=== PATIENT | male | born 1955 | race Caucasian/White ===

== ENCOUNTER 2021-05-30 11:12 | Day surgery (SDC) | payer OTHER, SELFPAY ==
[~2021-05-30] VITALS: Ht 175.3 cm; Wt 108.9 kg
[2021-05-30] MEDS ORDERED: LIDOCAINE 2% 100 MG/5 ML UJET TP ONE (12:45)
[2021-05-30] MEDS ORDERED: fentaNYL citrate 0.05 MG/ML VIAL ONE (12:45)
== END 2021-05-30 13:50 | disposition home or self-care (01) ==
LOC: MDS 11:12 → MMU 11:13 → MDS 13:50
PROVIDERS: ATTEND Internal Medicine Gastroenterology
DX: D50.9 Iron deficiency anemia, unspecified (principal); K63.5 Polyp of colon; K64.9 Unspecified hemorrhoids; I10 Essential (primary) hypertension; E11.9 Type 2 diabetes mellitus without complications; K44.9 Diaphragmatic hernia without obstruction or gangrene; Z79.899 Other long term (current) drug therapy; Z20.822 Contact with and (suspected) exposure to COVID-19
CPT/HCPCS: 45385; 87426; J3010

== ENCOUNTER 2021-07-25 09:34 | Day surgery (SDC) | payer OTHER ==
[~2021-07-25] VITALS: Ht 175.3 cm; Wt 104.3 kg
[2021-07-25] MEDS ORDERED: fentaNYL citrate 0.05 MG/ML VIAL ONE (12:53)
[2021-07-25] MEDS ORDERED: MIDAZOLAM 5 MG/5 ML VIAL ONE (12:54)
== END 2021-07-25 14:00 | disposition home or self-care (01) ==
LOC: MDS 09:34 → MMU 09:35 → MDS 14:00
PROVIDERS: ATTEND Internal Medicine Gastroenterology
DX: D50.9 Iron deficiency anemia, unspecified (principal); K52.9 Noninfective gastroenteritis and colitis, unspecified; K25.9 Gastric ulcer, unspecified as acute or chronic, without hemorrhage or perforation; I10 Essential (primary) hypertension; E78.5 Hyperlipidemia, unspecified; E11.9 Type 2 diabetes mellitus without complications; M19.90 Unspecified osteoarthritis, unspecified site; K59.00 Constipation, unspecified; E66.9 Obesity, unspecified; Z68.33 Body mass index [BMI] 33.0-33.9, adult; Z79.899 Other long term (current) drug therapy; Z20.822 Contact with and (suspected) exposure to COVID-19
CPT/HCPCS: 43239; 87426; J2250; J3010; 88305; 88312; 88313; 88342

== ENCOUNTER 2023-01-01 10:46 | Day surgery (SDC) | payer OTHER ==
[~2023-01-01] VITALS: Ht 172.7 cm; Wt 103.4 kg
[2023-01-01] MEDS ORDERED: diphenhydrAMINE 50 MG/ML VIAL ONE (12:26)
[2023-01-01] MEDS ORDERED: MIDAZOLAM 5 MG/5 ML VIAL ONE (12:26)
[2023-01-01] MEDS ORDERED: fentaNYL citrate 0.05 MG/ML VIAL ONE (12:26)
[2023-01-01] MEDS ORDERED: MIDAZOLAM 2 MG/2 ML VIAL IVP ONE (15:30)
== END 2023-01-01 13:50 | disposition home or self-care (01) ==
LOC: MDS 10:46 → MMU 10:47 → MDS 13:50
PROVIDERS: ATTEND Internal Medicine Gastroenterology
DX: D50.9 Iron deficiency anemia, unspecified (principal); S40.021A Contusion of right upper arm, initial encounter; Q27.33 Arteriovenous malformation of digestive system vessel; I10 Essential (primary) hypertension; E78.5 Hyperlipidemia, unspecified; E11.9 Type 2 diabetes mellitus without complications; Z98.890 Other specified postprocedural states; X58.XXXA Exposure to other specified factors, initial encounter; Y93.89 Activity, other specified; Y92.89 Other specified places as the place of occurrence of the external cause; Y99.8 Other external cause status
CPT/HCPCS: 43255; 82948; J2250; J3010; J1200

== ENCOUNTER 2023-01-14 14:15 | Emergency (ER) | payer OTHER ==
[~2023-01-14] VITALS: Ht 172.7 cm; Wt 111.1 kg
[2023-01-14 14:43] VITALS: BP 111/46; PULSE 87; RESP 16; TEMP 98.3; O2SAT 95
[2023-01-14 15:10] LABS: BASOPHILS % (AUTO) 0.3 % (0.0-2.0); EOSINOPHILS % (AUTO) 0.4 % (0.0-4.0); HEMATOCRIT 23.4 % (36-52); LYMPHOCYTES # (AUTO) 1.6 K/uL (2.0-11.5); LYMPHOCYTES % (AUTO) 15.2 % (20.5-51.1); MEAN CORPUSCULAR HEMOGLOBIN 23 pg (27-31); MEAN CORPUSCULAR HGB CONC 30 g/dL (33-37); MEAN CORPUSCULAR VOLUME 75.8 fL (80-94); MONOCYTES # (AUTO) 0.7 K/uL (0.8-1.0); MONOCYTES % (AUTO) 6.6 % (1.7-9.3); NEUTROPHILS % (AUTO) 77.5 % (42.2-75.2); PLATELET COUNT (AUTO) 156 K/uL (140-450); RED BLOOD CELL COUNT(AUTO) 3.09 MIL/uL (4.20-6.10); RED CELL DISTRIBUTION WIDTH 19.1 % (11.6-13.7); WHITE BLOOD COUNT (AUTO) 10.3 K/uL (4.8-10.8)
[2023-01-14 15:27] LABS: ALBUMIN 3.3 g/dL (3.4-5.0); ANION GAP 14.6 (8-16); CALCIUM 8.7 mg/dL (8.5-10.1); CARBON DIOXIDE 24.8 mmol/L (21-32); CREATININE 1.2 mg/dL (0.6-1.3); POTASSIUM 4.4 mmol/L (3.5-5.1); TOTAL BILIRUBIN 0.4 mg/dL (0.0-1.0); TOTAL PROTEIN, SERUM 6.6 g/dL (6.4-8.2)
[2023-01-14 15:30] LABS: INR 1.03 (0.8-1.2); PROTHROMBIN TIME 10.8 secs (10.8-13.4)
[2023-01-14] MEDS ORDERED: ALUMINUM HYD/MAG/SIMETHICONE 30 ML UDC PO ONE (18:20)
[2023-01-14 19:28] VITALS: BP 112/46; PULSE 71; RESP 21; TEMP 98.2; O2SAT 99
== END 2023-01-14 21:04 | disposition home or self-care (01) ==
LOC: MED 14:15
DX: D50.9 Iron deficiency anemia, unspecified (principal); R55 Syncope and collapse; K92.2 Gastrointestinal hemorrhage, unspecified; R53.1 Weakness; E11.22 Type 2 diabetes mellitus with diabetic chronic kidney disease; I12.9 Hypertensive chronic kidney disease with stage 1 through stage 4 chronic kidney disease, or unspecified chronic kidney disease; N18.9 Chronic kidney disease, unspecified; I25.10 Atherosclerotic heart disease of native coronary artery without angina pectoris; E78.00 Pure hypercholesterolemia, unspecified; Z98.890 Other specified postprocedural states
CPT/HCPCS: 36415; 36430; 71045; 80053; 83880; 84484; 85025; 85610; 85730; 86886; 86900; 86901; 86920; 93005; 99285; P9016; Q0092